=== PATIENT | female | born 1985 | race American Indian/Alaskan Native ===

== ENCOUNTER 2021-02-21 08:13 | Emergency (ER) | payer OTHER ==
[2021-02-21 08:20] VITALS: BP 158/96
[2021-02-21] MEDS ORDERED: diphenhydrAMINE 25 MG CAP PO ONE (08:26)
[2021-02-21] MEDS ORDERED: HYDROcodone/ACETAMINOPHEN 10-325MG TAB PO ONE (08:26)
[2021-02-21] MEDS ORDERED: METOCLOPRAMIDE 10 MG TAB PO ONE (08:26)
--- NOTE | 2021-02-21 08:47 | Event Note ---
ED Screening Note Date of service: 02/21/21 Time: 08:46 ED Screening Note: Patient complains of lower abdominal pain due to fibroids States pain is chronic however pain is suddenly worsening Has been following with a specialist and had an ultrasound done 2 days ago that showed a mass which was biopsied States she has been taking Toradol for over a month This initial assessment/diagnostic orders/clinical plan/treatment(s) is/are subject to change based on patients health status, clinical progression and re- assessment by fellow clinical providers in the ED. Further treatment and workup at subsequent clinical providers discretion. Patient/guardian urged not to elope from the ED as their condition may be serious if not clinically assessed and managed. Initial orders include: Labs Meds
[2021-02-21 09:15] LABS: Bilirubin,Urine NEG (Negative); Blood,Urine MOD (Negative); Color,Urine Yellow (Yellow); Mucus,Urine 2+ /HPF; Protein,Urine <15 mg/dL mg/dL (Negative); Urobilinogen,Urine < 2.0 mg/dL (<2.0)
[2021-02-21 09:19] LABS: Basophils % (Auto) 0.3 % (0.0-1.8); Eosinophils # (Auto) 0.1 K/mm3 (0.0-0.4); Eosinophils % (Auto) 1.9 % (0.0-4.3); Hematocrit 38.5 % (30.3-42.9); Hemoglobin 12.5 gm/dl (10.1-14.3); Lymphocytes # (Auto) 2.1 K/mm3 (1.2-5.4); Lymphocytes % (Auto) 35.4 % (13.4-35.0); Mean Corpuscular HGB Conc 33 % (30-34); Mean Corpuscular Volume 70 fl (79-97); Monocytes # (Auto) 0.3 K/mm3 (0.0-0.8); Monocytes % (Auto) 5.1 % (0.0-7.3); Platelet Count 279 K/mm3 (140-440); Red Blood Count 5.51 M/mm3 (3.65-5.03); Red Cell Distribution Width 14.9 % (13.2-15.2)
[2021-02-21 09:53] LABS: Alanine Aminotransferase 9 units/L (7-56); Albumin 3.6 g/dL (3.9-5); BUN/Creatinine Ratio 17; Blood Urea Nitrogen 19 mg/dL (7-17); Calcium 9.3 mg/dL (8.4-10.2); Hemolysis Index 1
--- NOTE | 2021-02-21 10:41 | Emergency Department Report ---
ED General Adult HPI - General Chief complaint: Abdominal Pain Stated complaint: ABD PAIN PELVIC AREA Time Seen by Provider: 02/21/21 08:26 Source: patient Mode of arrival: Ambulatory Limitations: No Limitations - History of Present Illness Initial comments: Patient complains of lower abdominal pain due to fibroids States pain is chronic however pain is suddenly worsening Has been following with a specialist and had an ultrasound done 2 days ago that showed a mass which was biopsied States she has been taking Toradol for over a month -: Gradual Severity scale (0 -10): 9 Consistency: constant - Related Data Previous Rx's Medication Instructions Recorded Last Taken Type Acetaminophen/Codeine [Tylenol 1 tab PO Q8H PRN #10 tab 02/21/21 Unknown Rx /Codeine # 3 tab] Fluconazole [Diflucan TAB] 200 mg PO QDAY PRN #1 tablet 02/21/21 Unknown Rx Metoclopramide [Reglan] 10 mg PO TID PRN #30 tab 02/21/21 Unknown Rx Sulfamethoxazole/Trimethoprim 1 each PO BID 5 Days #10 tablet 02/21/21 Unknown Rx [Bactrim DS TAB] diphenhydrAMINE [Benadryl CAP] 25 mg PO TID PRN #30 capsule 02/21/21 Unknown Rx Allergies Allergy/AdvReac Type Severity Reaction Status Date / Time capsaicin AdvReac Hives Verified 02/21/21 08:21 egg AdvReac Anaphylaxis Verified 02/21/21 08:21 ED Review of Systems ROS: Stated complaint: ABD PAIN PELVIC AREA Other details as noted in HPI Constitutional: denies: chills, fever Respiratory: denies: cough, shortness of breath Cardiovascular: denies: chest pain Gastrointestinal: abdominal pain. denies: nausea, vomiting, diarrhea, constipation, hematemesis, melena, hematochezia Genitourinary: denies: urgency, dysuria, frequency, hematuria, discharge, abnormal menses, dyspareunia Skin: denies: rash, lesions, change in color Neurological: denies: headache Hematological/Lymphatic: denies: easy bleeding ED Past Medical Hx - Past Medical History Hx Hypertension: Yes Hx Asthma: Yes Additional medical history: hypothyroidism. PCOS - Surgical History Additional Surgical History: L foot sx- as child - Social History Smoking Status: Never Smoker Substance Use Type: None - Medications Home Medications: Home Medications Medication Instructions Recorded Confirmed Last Taken Type Acetaminophen/Codeine [Tylenol 1 tab PO Q8H PRN #10 tab 02/21/21 Unknown Rx /Codeine # 3 tab] Fluconazole [Diflucan TAB] 200 mg PO QDAY PRN #1 tablet 02/21/21 Unknown Rx Metoclopramide [Reglan] 10 mg PO TID PRN #30 tab 02/21/21 Unknown Rx Sulfamethoxazole/Trimethoprim 1 each PO BID 5 Days #10 tablet 02/21/21 Unknown Rx [Bactrim DS TAB] diphenhydrAMINE [Benadryl CAP] 25 mg PO TID PRN #30 capsule 02/21/21 Unknown Rx ED Physical Exam - General Limitations: No Limitations General appearance: alert, in no apparent distress - Head Head exam: Present: atraumatic, normocephalic - Eye Eye exam: Present: normal appearance. Absent: scleral icterus - Respiratory Respiratory exam: Absent: respiratory distress - Cardiovascular Cardiovascular Exam: Present: regular rate - GI/Abdominal GI/Abdominal exam: Present: soft, tenderness (Suprapubic), normal bowel sounds. Absent: distended, guarding, rebound, rigid - Expanded GI/Abdominal Exam Expanded GI/Abdominal exam: Absent: Alberts's sign, tenderness at Mcburney's Point - Extremities Exam Extremities exam: Present: full ROM - Neurological Exam Neurological exam: Present: alert, oriented X3, normal gait - Psychiatric Psychiatric exam: Present: normal affect, normal mood - Skin Skin exam: Present: warm, dry, intact, normal color. Absent: rash ED Course Vital Signs 02/21/21 08:17 Temperature 98.7 F Pulse Rate 90 Respiratory 20 Rate Blood Pressure 158/96 O2 Sat by Pulse 100 Oximetry ED Medical Decision Making - Lab Data Result diagrams: 02/21/21 08:47 02/21/21 08:47 - Medical Decision Making CBC and CMP are negative for any acute abnormalities. UA shows elevated WBCs. Will treat for UTI. Recommend patient discontinue Toradol. Patient also to follow-up with her [facility] specialist for further pain control and evaluation. Discussed signs and symptoms that should prompt immediate return to the emergen cy department in detail with patient who verbalized understanding. Her vitals are within normal limits, she is nontoxic-appearing, she is stable for discharge home. Critical care attestation.: If time is entered above; I have spent that time in minutes in the direct care o f this critically ill patient, excluding procedure time. ED Disposition Clinical Impression: Chronic pelvic pain in female, UTI (urinary tract infection) Disposition: TO HOME OR SELFCARE Is pt being admited?: No Condition: Stable Instructions: Abdominal Pain (ED), Uterine Fibroids, Urinary Tract Infection, Adult Additional Instructions: Please follow up with your agriculture extension specialist today Prescriptions: Sulfamethoxazole/Trimethoprim [Bactrim DS TAB] 1 each PO BID 5 Days #10 tablet diphenhydrAMINE [Benadryl CAP] 25 mg PO TID PRN #30 capsule PRN Reason: Nausea Fluconazole [Diflucan TAB] 200 mg PO QDAY PRN #1 tablet PRN Reason: yeast infection Metoclopramide [Reglan] 10 mg PO TID PRN #30 tab PRN Reason: Nausea Acetaminophen/Codeine [Tylenol /Codeine # 3 tab] 1 tab PO Q8H PRN #10 tab PRN Reason: Pain , Severe (7-10) Referrals: RUTH GORDON MD [Primary Care Provider] - 3-5 Days Forms: Work/School Release Form(ED)
== END 2021-02-21 10:53 | disposition home or self-care (01) ==
LOC: ED 08:13
DX: N39.0 Urinary tract infection, site not specified (principal); R10.2 Pelvic and perineal pain; G89.29 Other chronic pain; I10 Essential (primary) hypertension; J45.909 Unspecified asthma, uncomplicated; Z79.899 Other long term (current) drug therapy; Z91.012 Allergy to eggs; Z88.8 Allergy status to other drugs, medicaments and biological substances; Z98.890 Other specified postprocedural states
CPT/HCPCS: 36415; 80053; 81001; 83690; 84703; 85025; 87086